=== PATIENT | female | born 1985 | race Caucasian/White ===

== ENCOUNTER 2024-12-30 15:06 | Inpatient (IN) | payer SELFPAY ==
--- OUTSIDE RECORDS SUMMARY | 2018-06-14 06:14 | XMS_ITS | Continuity of Care Document ---
Author Organization [facility] Address [address] [place] [id number] Phone Care Team Providers Care Attendant Lodging Facilities Name Role Phone Bren Domínguez APN Unavailable [...] Diagnoses Date Provider Providers Copied on Encounter [facility] [employer] [facility], [address] [place] [address], [id number] tel:[phone] [facility] Other dysphagia 9 [employer] FAMILY SERVICES COORDINATOR Bren. [address] [place] [address], [place], [place], [id number], [place]. tel:[phone] [facility], [address] [place] [address], [id number] tel:[phone] [facility] No Information 0 9 [employer] FAMILY SERVICES COORDINATOR Bren. [address] [place] [address], [place], [place], [id number], [place]. tel:[phone] [facility] [employer] [facility], [address] [place] [address], [id number] tel:[phone] [facility] No Information 9 Francis Faith. [address] [place] [address], [id number], [place]. tel:[phone] Referring Provider: Raymond Mtz MD, [address] [place] [address] [place], [place], [address]. tel:[phone] [facility], [address] [place] [address], [id number] tel:[phone] [facility] Other dysphagiaEsop hageal dysphagia Feb-0 9 Wayne Russ. [address] [place] [address], [place], [place], [id number], [place]. tel:[phone] [facility], [address] [place] [address], [id number] tel:[phone] [facility] Esophageal dysphagia Feb0 9 Francis Faith. [address] [place] [address], [id number], [place]. tel:[phone] Offic/outpt E&m Estab Mod-hi 2 [facility], [address] [place] [address], [id number] tel:[phone] [facility] follow up (chief complaint) Hiatal hernia with GERD and esophagitisEs ophageal dysphagiaSens ation of lump in throatHoarsen ess of voice [employer] CARLA Correia. [address] [place] [address]., [place], [place], [id number], [place]. tel:[phone] Referring Provider: Raymond Mtz MD, [address] [place] [address], [address]. tel:[phone] [facility], [address] [place] [address], [id number] tel:[phone] [facility] [employer] [facility] No Information Francis Faith. [address] [place] [address], [id number], [place]. tel:[phone] Referring Provider: Raymond Mtz MD, [address] [place] [address], [id number]. tel:[phone] [facility], [address] [place] [address], [id number] tel:[phone] [facility] No Information [facility]. [address] [place] [address], [id number], [place]. tel:[phone] Referring Provider: Marcell Magana, [address] [place] [address], [id number] . tel:[phone] [facility], [address] [place] [address], [id number] tel:[phone] [facility] Dysphagia, unspecifiedAb normal findings on dx imaging of prt digestive tractDisease of esophagus, unspecified Francis Faith. [address] [place] [address], [id number], [place]. tel:[phone] Referring Provider: Raymond Mtz MD, [address] [place] [address], [id number]. tel:[phone] [facility], [address] [place] [address], [id number] tel:[phone] [facility] [employer] Esophageal dysphagia 9 [employer] FAMILY SERVICES COORDINATOR Bren. [address] [facility] [place], [place], [id number], [place]. tel:[phone] Offic Cons New/estab Mod [facility], [address] [facility], [place], [place], [id number] tel:[phone] [facility] [employer] dysphagia (chief complaint) Esophageal dysphagiaSens ation of lump in throat 8 [employer] FAMILY SERVICES COORDINATOR Bren. [address] [facility] [place], [place], [id number], [place]. tel:[phone] Referring Provider: Raymond Mtz MD, [address] [place] [address], [place], [address]. tel:[phone] Family History Family Member Type Diagnosis Age At Onset Problem (finding) No family history of Ca ncer, colon Problem (finding) No family history of Co trish polyps Immunizations Vaccine Date Status Comments Zoster administered Source: Other P rovider Pneumonia administered Source: Other P rovider Flu (split) (3 yrs or older) administered Source: Other Provider Payers Payer name Insurance type Covered republican ID Authoriza tion(s) [facility] [id number] Social History Type Description Quantity Date [...]
[2024-12-30 15:07] VITALS: BP 142/106; PULSE 102; RESP 20; TEMP 36.9; O2SAT 96; BMI 15.9
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
--- NOTE | 2024-12-30 15:22 | ECG_ITS ---
[facility] Date: 2024-12[facility]30 Pat Name: Ignacia Scott Department: Room: Gender: Female Button Tacker: : 1985 Requested By: Shani Clifford Order Number: [id number] Chintan MD: NATE BRIAN Measurements Intervals [place] Rate: 88 P: 71 ME: 136 QRS: 78 QRSD: 68 T: 38 QT: 348 QTc: 423 Interpretive Statements SINUS RHYTHM NONSPECIFIC T-WAVE ABNORMALITY No previous ECG available for comparison Electronically Signed On 12-30-2024 21:34:06 CDT by NATE BRIAN [email or web address]
[2024-12-30 15:27] LABS: Hematocrit 38.5 % (36-47); Hemoglobin 12.50 g/dL (11.27-16.99); Mean Corpuscular HGB Conc 32.5 g/dL (30-55); Mean Corpuscular Hemoglobin 33.8 pg (27-33); Mean Corpuscular Volume 104.1 fl (85-98); Nucleated Red Blood Cells % 0 %; Platelet Count 324 10^3/cmm (157-399); Red Blood Count 3.70 10^6/uL (3.85-5.65); White Blood Count 13.31 10^3/uL (3.29-11.43)
[2024-12-30 15:28] LABS: Glucose Urine UA Negative (Normal); Nitrate Urine Negative (Negative); Specific Gravity, Urine 1.024 (1.005-1.030)
[2024-12-30 15:33] LABS: Add Urine Microscopic? YES
[2024-12-30 15:35] LABS: PCP Screen Urine Negative (Negative)
[2024-12-30 15:37] LABS: HCG Qualitative Urine. Negative (Negative)
[2024-12-30 15:58] LABS: Acetaminophen < 5.0 ug/mL (10-30); Alanine Aminotransferase 42 U/L (0-33); Albumin Level 5.3 g/dL (3.5-5.2); Alcohol Level < 10 mg/dL (0-10); Alkaline Phosphatase 86 U/L (35-105); Anion Gap 15.1 (5-19); Aspartate Amino Transferase 64 U/L (0-32); Blood Urea Nitrogen 16 mg/dL (6-20); Calcium 9.4 mg/dL (8.5-10.5); Carbon Dioxide 30 mmol/L (22-29); Chloride 100 mmol/L (98-107); Creatinine Clr Calc Pharmacy 46.1224; Globulin 3.2 g/dL (1.3-4.6); Glucose 103 mg/dL (65-115); Osmolality Calculated 293 mOsm/kg (285-295); Potassium 4.1 mmol/L (3.5-5.1); Salicylate < 0.3 mg/dL (3-10); Sodium 141 mmol/L (136-145); Total Protein 8.5 g/dL (6.6-8.7)
[2024-12-30 16:20] LABS: Thyroid Stimulating Hormone 183.00 uIU/mL (0.27-4.20)
[2024-12-30 16:43] VITALS: BP 129/91; PULSE 93; RESP 16; O2SAT 96
[2024-12-30 17:30] VITALS: BP 157/101; PULSE 113; RESP 16; TEMP 37.1; O2SAT 96
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
--- NOTE | 2024-12-30 19:41 | P.CONIM_ITS ---
Providers/Reason For Consult 2 Consulting Physician/Specialty*: Osmin Mclean MD hospitalist Reason for Consult*: Hypothyroidism Requesting Physician: Inocencio Weber MD Attending Physician: Inocencio Weber MD History of Present Illness History of Present Illness Ignacia Scott is a 39 year old female with history of hypothyroidism states she had precancerous thyroid goiter with resection 2012. She was treated with levothyroxine 125 mcg 237 mcg with frequent changes but last dose was 125 mcg 1 year ago. Patient was admitted to the psych unit with suicidal ideation and found to have a TSH of 183. Patient reports history of hemochromatosis, brittle bones, osteoporosis and thyroidectomy Review of Systems 2 Narrative: Denies constipation, dry hair dry skin brittle hair. Patient states she cannot sleep and is anxious tired of living in distress Medications/Allergies Home Medications ?Medication ?Instructions ?Recorded ?Confirmed ?Last Taken ?Type No Known Home Medications 12/30/2412/05 Unknown History Allergies Allergy/AdvReac Type Severity Reaction Status Date / Time meloxicam Allergy Mild Unknown Unverified 12/30/24 18:40 escitalopram (From Lexapro) Allergy ALGY-Swell Verified 12/30/24 15:12 Lip/Tongue/Throat NSAIDS (Non-Steroidal Allergy ALGY-Swell Verified 12/30/24 15:12 Anti-Inflamma Lip/Tongue/Throat Current Medications Generic Name Dose Route Start Last Admin Trade Name Freq PRN Reason Stop Dose Admin Hydroxyzine Pamoate 50 mg 12/30/24 17:30 12/30/24 18:35 Hydroxyzine 25 Mg Capsule PO 50 mg Q6H PRN Administration ANXIETY PFSH Acute 2 PFSH: Medical History (Updated 12/30/24 @ 19:44 by Osmin Mclean MD) Hypothyroidism Hx of thyroidectomy Female Reproductive History: Date of last menstrual period: 04/05/16 Vitals/I&O/Wt Last Vital Signs Temp 98.7 F 12/30/24 17:30 Pulse 113 H 12/30/24 17:30 Resp 16 12/30/24 17:30 BP 157/101 12/30/24 17:30 Pulse Ox 96 12/30/24 17:30 O2 Del Method Room Air 12/30/24 17:32 Weight last 48 hrs Weight 39.463 kg Physical Exam 2 Narrative: Will return to examine. Dr. Weber currently seeing the patient Data 12/30/24 15:19 12/30/24 15:19 A&P Assessment and plan 1. Hypothyroidism: Start levothyroxine 137 mcg daily first dose now next dose in the morning. Will follow-up on symptoms and free T4 PDMP PDMP Reviewed: Not Reviewed Coding Level of Care Code 20729 Diagnoses Hypothyroidism E03.9 Time Spent (min) 15
[2024-12-30 20:31] VITALS: BP 122/86; PULSE 87; RESP 18; TEMP 36.6; O2SAT 99
[2024-12-30 21:28] LABS: Free T4 Free Thyroxine 0.12 ng/dL (0.82-1.77)
[2024-12-31 06:00] VITALS: BP 106/79; PULSE 90; RESP 19; TEMP 36.6; O2SAT 100; BMI 18.7
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
[2024-12-31 14:51] VITALS: BP 126/90; PULSE 98; RESP 18; TEMP 36.4
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
--- NOTE | 2024-12-31 16:42 | XRR_ITS ---
PROCEDURE INFORMATION: Exam: XR Ribs Exam date and time: 12/31/2024 4:54 PM Age: 39 years old Clinical indication: Painful respiration; Additional info: Bilateral rib pain after persistent cough; Osteoporosis TECHNIQUE: Imaging protocol: Radiologic exam of the of the ribs. Views: 3 views. Bilateral ribs. Total images: 3 COMPARISON: No relevant prior studies available. FINDINGS: Limitations: No fiducial skin marker was placed at the site of clinical concern. Bones/joints: Left posterior 6th rib fracture deformity with periosteal reaction and a subtle partial radiolucent hairline suggesting acute or subacute, possibly healing rib fracture. Healed right posterior 5th, 6th, 7th, 8th subtle rib fracture deformities best appreciated on the oblique projection. Mild generalized degenerative changes of the vertebral column characterized primarily by multilevel osteophyte formation, and degenerative facet arthrosis commensurate with patient's age. No acute osseous abnormality. Qualitative demineralization of bones (osteopenia) limiting evaluation for nondisplaced fractures. Last. Lungs: Lungs are mildly hyperaerated with slight flattening of the diaphragms, query air trapping of reactive airways disease or asthma exacerbation. No focal acute pathologic pulmonary parenchymal process. Pleural spaces: No significant pleural effusion. No pneumothorax. Heart/Mediastinum: The heart is not enlarged. Organs: Surgical clips are noted midline and right of midline in the region of the thyroid bed. Soft tissues: Soft tissues are normal as visualized, demonstrating no masses or induration. XR/XR ribs BI mn 4V w [id number] IMPRESSION: 1. Left posterior 6th rib fracture with periosteal reaction, probably representing a healing subacute fracture (age indeterminate). 2. Old healed posttraumatic right rib fracture deformities. 3. No specific imaging evidence of acute disease of the chest. No pneumothorax. No pulmonary contusion. No pleural effusion. 4. Mild hyperaeration-hyper lucency of the lung pineda, query air trapping of reactive airways disease. 5. Generalized mild skeletal degenerative and other chronic/nonacute findings as described above. COMMENTS: 1. Qualitative demineralization of bones (osteopenia) limiting evaluation for nondisplaced fractures. 2. If symptoms do not correspond closely to the suspected left posterior 6 rib fracture, or if symptoms persist or worsen, consider repeat imaging with fiducial skin markers at the troublesome clinical areas of concern or a follow-up study in 7-10 days if clinically warranted.
--- NOTE | 2024-12-31 16:52 | XRR_ITS ---
PROCEDURE INFORMATION: Exam: XR Right Hip Exam date and time: 12/31/2024 5:09 PM Age: 39 years old Clinical indication: Hip pain; Right hip; Additional info: RT hip pain TECHNIQUE: Imaging protocol: Radiologic exam of the right hip. Views: 1 view hip with pelvis when performed. Total images: 53 COMPARISON: No relevant prior studies available. FINDINGS: Bones/joints: No acute osseous abnormality. No acute displaced fracture, subluxation or dislocation. Soft tissues: Soft tissues are normal as visualized, demonstrating no masses or induration. Gastrointestinal tract: Moderate volume of stool throughout the course of the nondistended colon. Other findings: Incidental pelvic venous phlebolith noted. XR/XR hip RT 2-3V wo/w pel* [id number] IMPRESSION: 1. No acute displaced fracture. 2. Moderate burden of colonic stool without distension.
--- NOTE | 2024-12-31 17:19 | PC.NURSE ---
Pt was down in xray for a chest xray. She asked if there was also a Rt hip xray ordered. The xray staff told her there wasn't. We called Dr. Mclean and he gave a v/o for a Rt hip xray. That was done while we were down there.
[2024-12-31] MEDS: calcium carb-vit d 600mg/400unit 1 Tablet 1 EACH PO (17:53)
[2024-12-31 19:01] LABS: Ferritin 79 ng/mL (15-150); Iron 41 ug/dL (37-145); Total Iron Binding Capacity 295 mcg/dl; Unsaturated Iron Binding 254 ug/dL (112-347)
[2024-12-31] MEDS: HYDROcodone-acetaminophen 5-325 mg Tablet 1 TAB PO (20:01)
[2024-12-31 21:19] VITALS: BP 115/82; PULSE 93; RESP 18; TEMP 36.7; O2SAT 100
[2025-01-01 06:00] VITALS: BP 107/84; PULSE 98; RESP 18; TEMP 37.1; O2SAT 100
[2025-01-01] MEDS: HYDROcodone-acetaminophen 5-325 mg Tablet 1 TAB PO ×3 (06:13→20:08)
[2025-01-01] MEDS: calcium carb-vit d 600mg/400unit 1 Tablet 1 EACH PO ×2 (08:26→17:36)
[2025-01-01 14:00] VITALS: BP 125/92; PULSE 83; RESP 18; TEMP 36.7; O2SAT 100
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
[2025-01-01 18:52] LABS: Hematocrit 33.7 % (36-47); Hemoglobin 11.10 g/dL (11.27-16.99); Mean Corpuscular HGB Conc 32.9 g/dL (30-55); Mean Corpuscular Hemoglobin 34.7 pg (27-33); Mean Corpuscular Volume 105.3 fl (85-98); Nucleated Red Blood Cells % 0 %; Platelet Count 270 10^3/cmm (157-399); Red Blood Count 3.20 10^6/uL (3.85-5.65); White Blood Count 9.65 10^3/uL (3.29-11.43)
[2025-01-01 19:14] LABS: Alanine Aminotransferase 27 U/L (0-33); Albumin Level 4.7 g/dL (3.5-5.2); Alkaline Phosphatase 66 U/L (35-105); Anion Gap 17.4 (5-19); Aspartate Amino Transferase 33 U/L (0-32); Blood Urea Nitrogen 22 mg/dL (6-20); Calcium 9.9 mg/dL (8.5-10.5); Carbon Dioxide 31 mmol/L (22-29); Chloride 97 mmol/L (98-107); Creatinine Clr Calc Pharmacy 56.8419; Globulin 2.4 g/dL (1.3-4.6); Glucose 75 mg/dL (65-115); Osmolality Calculated 294 mOsm/kg (285-295); Potassium 4.4 mmol/L (3.5-5.1); Sodium 141 mmol/L (136-145); Total Protein 7.1 g/dL (6.6-8.7)
[2025-01-01 20:04] VITALS: BP 124/89; PULSE 88; RESP 16; TEMP 36.7; O2SAT 98
[2025-01-02] MEDS: HYDROcodone-acetaminophen 5-325 mg Tablet 1 TAB PO ×3 (03:01→14:03)
[2025-01-02 03:04] VITALS: BP 122/92; PULSE 87; RESP 16; TEMP 36.5; O2SAT 100
[2025-01-02 07:28] LABS: Hematocrit 37.9 % (36-47); Hemoglobin 12.50 g/dL (11.27-16.99); Mean Corpuscular HGB Conc 33.0 g/dL (30-55); Mean Corpuscular Hemoglobin 34.9 pg (27-33); Mean Corpuscular Volume 105.9 fl (85-98); Nucleated Red Blood Cells % 0 %; Platelet Count 296 10^3/cmm (157-399); Red Blood Count 3.58 10^6/uL (3.85-5.65); White Blood Count 9.14 10^3/uL (3.29-11.43)
[2025-01-02 07:47] LABS: Alanine Aminotransferase 26 U/L (0-33); Albumin Level 4.8 g/dL (3.5-5.2); Alkaline Phosphatase 68 U/L (35-105); Anion Gap 16.8 (5-19); Aspartate Amino Transferase 32 U/L (0-32); Blood Urea Nitrogen 22 mg/dL (6-20); Calcium 10.2 mg/dL (8.5-10.5); Carbon Dioxide 28 mmol/L (22-29); Chloride 97 mmol/L (98-107); Creatinine Clr Calc Pharmacy 51.6745; Globulin 2.3 g/dL (1.3-4.6); Glucose 121 mg/dL (65-115); Osmolality Calculated 289 mOsm/kg (285-295); Potassium 4.8 mmol/L (3.5-5.1); Sodium 137 mmol/L (136-145); Total Protein 7.1 g/dL (6.6-8.7)
[2025-01-02 07:56] LABS: Free T4 Free Thyroxine 0.67 ng/dL (0.82-1.77)
[2025-01-02 08:21] LABS: Thyroid Stimulating Hormone 233.20 uIU/mL (0.27-4.20)
[2025-01-02] MEDS: calcium carb-vit d 600mg/400unit 1 Tablet 1 EACH PO (08:21)
[2025-01-02 13:21] VITALS: BP 114/80; PULSE 90; RESP 18; TEMP 37.1; O2SAT 100
[2025-01-02 13:51] VITALS: BP 114/80; PULSE 90; RESP 18; TEMP 37.1; O2SAT 100
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
--- NOTE | 2025-01-02 18:26 | P.PN_ITS ---
Subjective 2 Subjective: Hospital course appreciated. No acute events overnight. Plan for possible discharge as per psychiatry team. Patient has remained on room air and hemodynamically stable. Tolerating levothyroxine well. Vitals/I&O/Wt Last Vital Signs Temp 98.7 F 01/02/25 13:51 Pulse 90 01/02/25 13:51 Resp 18 01/02/25 13:51 BP 114/80 01/02/25 13:51 Pulse Ox 100 01/02/25 13:51 O2 Del Method Room Air 01/02/25 13:21 Physical Exam 2 Narrative: General well-developed thin white female in no cardiopulmonary distress she is intermittently emotional and mildly distressed Neck no palpable masses that she has a large lower neck horizontal incisional scar well-healed CV regular rate and rhythm Lungs clear to auscultation bilaterally Abdomen positive bowel tones soft nontender skin with some stretch davis no large striae Calves no pretibial edema. She does have mild bruising Ribs bilaterally mild diffusely tender she has difficult to discern individual root rib pain if he winces in his pain in general Data 01/02/25 07:18 01/02/25 07:18 A&P Assessment and plan 1. Hypothyroidism: Started levothyroxine 137 mcg daily first dose now next dose in the morning. Patient denies diarrhea or constipation. She is thin but denies significant weight change. She denies brittle hair. She does admit to dry skin. She denies hypersomnolence. TSH was 0.12 this morning Continue levothyroxine 137 mcg daily 2. Anxiety and depression: Treatment has per Dr. Weber 3. Chronic migraine: Will start riboflavin 400 mg daily 4. Rib pain on left side: Plain films bilateral ribs for fracture 5. Osteoporosis: Start Fosamax 70 mg weekly, vitamin D and calcium. Will check vitamin D level 6. Hemochromatosis: Check ferritin and iron Plan: Plan for the day: Appreciate CBC, CMP and repeat thyroid panel. Improvement in free T4. For now continue with levothyroxine 137 mcg daily. Will advise patient to follow-up as an outpatient with PCP and a repeat thyroid panel in 4 weeks. PDMP PDMP Reviewed: Not Reviewed Attestations 2 Medical Necessity Statement*: As per primary team Diagnoses Hypothyroidism E03.9 Anxiety and depression F41.9; F32.A Chronic migraine Rib pain on left side R07.81 Osteoporosis M81.0 Hemochromatosis E83.119
[2025-01-04 10:15] LABS: Vit D 1,25 (Oh)2, Total 68 pg/mL (18-72); Vit D2 1,25 (Oh)2 <8 pg/mL; Vit D3 1,25 (Oh)2 68 pg/mL
== END 2025-01-02 16:14 | disposition home or self-care (01) | DRG 881 ==
LOC: ER 16:02 → NP 16:34
PROVIDERS: Internal Medicine; Student in an Organized Health Care Education/Training Program; Admitting Provider Psychiatry & Neurology Psychiatry; Emergency Provider Emergency Medicine; Visit Provider Psychiatry & Neurology Psychiatry
DX: F32.A Depression, unspecified (principal); R45.851 Suicidal ideations; Z59.00 Homelessness unspecified; M80.0AXA Age-related osteoporosis with current pathological fracture, other site, initial encounter for fracture; F41.9 Anxiety disorder, unspecified; E03.9 Hypothyroidism, unspecified; Z88.8 Allergy status to other drugs, medicaments and biological substances; Z90.49 Acquired absence of other specified parts of digestive tract; F14.11 Cocaine abuse, in remission; F43.10 Post-traumatic stress disorder, unspecified; G43.909 Migraine, unspecified, not intractable, without status migrainosus; E83.119 Hemochromatosis, unspecified; G47.00 Insomnia, unspecified; T38.1X6A Underdosing of thyroid hormones and substitutes, initial encounter; Z91.411 Personal history of adult psychological abuse; Z91.410 Personal history of adult physical and sexual abuse
CPT/HCPCS: 36415; 71111; 73502; 80053; 80306; 80307; 81001; 81025; 82533; 82652; 82728; 83540; 83550; 84439; 84443; 85025; 93005; 97150; 97165; 99285; J9999

== ENCOUNTER 2025-01-03 11:49 | Emergency (ER) | payer SELFPAY ==
--- OUTSIDE RECORDS SUMMARY | 2018-06-14 06:14 | XMS_ITS | Continuity of Care Document ---
Author Organization [facility] Address [address] [place] [id number] Phone Care Team Providers Care Tug Captain Name Role Phone Bren Domínguez APN Unavailable [...] Diagnoses Date Provider Providers Copied on Encounter [place] [facility], [address] [place] [address], [id number] tel:[phone] [facility] Other dysphagia 9 [employer] CRAB STEAMER Bren. [address] [place] [address], [place], [place], [id number], [place]. tel:[phone] [facility], [address] [place] [address], [id number] tel:[phone] [facility] No Information 0 9 [employer] CRAB STEAMER Bren. [address] [place] [address], [place], [place], [id number], [place]. tel:[phone] [facility], [address] [place] [address], [id number] tel:[phone] [facility] No Information 9 Francis Faith. [address] [place] [address], [id number], [place]. tel:[phone] Referring Provider: Raymond Mtz MD, [address] [place] [address] [place], [place], [address]. tel:[phone] [facility], [address] [place] [address], [id number] tel:[phone] [facility] Other dysphagiaEsop hageal dysphagia Feb-0 9 Wayne Russ. [address] [place] [address], [place], [place], [id number], [place]. tel:[phone] [facility], [address] [place] [address], [id number] tel:[phone] [facility] [facility] Esophageal dysphagia Feb0 9 Francis Faith. [address] [place] [address], [id number], [place]. tel:[phone] Offic/outpt E&m Estab Mod-hi 2 [facility], [address] [place] [address], [id number] tel:[phone] [facility] [facility] follow up (chief complaint) Hiatal hernia with GERD and esophagitisEs ophageal dysphagiaSens ation of lump in throatHoarsen ess of voice [employer] CARLA Correia. [address] [place] [address]., [place], [place], [id number], [place]. tel:[phone] Referring Provider: Raymond Mtz MD, [address] [place] [address], [id number]. tel:[phone] [facility], [address] [place] [address], [id number] tel:[phone] [facility] [facility] [employer] [facility] No Information Francis Faith. [address] [place] [address], [id number], [place]. tel:[phone] Referring Provider: Raymond Mtz MD, [address] [place] [address], [address]. tel:[phone] [facility], [address] [place] [address], [id number] tel:[phone] [facility] No Information [facility]. [address] [place] [address], [id number], [place]. tel:[phone] Referring Provider: Marcell Magana, [address] [place] [address], [id number] . tel:[phone] [facility], [address] [place] [address], [id number] tel:[phone] [facility] [facility] [employer] [facility] Dysphagia, unspecifiedAb normal findings on dx imaging of prt digestive tractDisease of esophagus, unspecified Francis Faith. [address] [place] [address], [id number], [place]. tel:[phone] Referring Provider: Raymond Mtz MD, [address] [place] [address], [id number]. tel:[phone] [facility], [address] [place] [address], [id number] tel:[phone] [facility] [facility] Esophageal dysphagia 9 [employer] CRAB STEAMER Bren. [address] [facility] [place], [place], [id number], [place]. tel:[phone] Offic Cons New/estab Mod [facility], [address] [facility], [place], [place], [id number] tel:[phone] [facility] dysphagia (chief complaint) Esophageal dysphagiaSens ation of lump in throat 8 [employer] CRAB STEAMER Bren. [address] [facility] [place], [place], [id number], [place]. tel:[phone] Referring Provider: Raymond Mtz MD, [address] [place] [address], [place], [address]. tel:[phone] Family History Family Member Type Diagnosis Age At Onset Problem (finding) No family history of Ca ncer, colon Problem (finding) No family history of Co trish polyps Immunizations Vaccine Date Status Comments Zoster administered Source: Other P rovider Pneumonia administered Source: Other P rovider Flu (split) (3 yrs or older) administered Source: Other Provider Payers Payer name Insurance type Covered democrat ID Authoriza tion(s) [facility] [id number] Social History Type Description Quantity Date [...]
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
[2025-01-03 11:58] VITALS: BP 139/97; PULSE 87; TEMP 36.7; O2SAT 100
--- NOTE | 2025-01-03 12:35 | W.ED.GENADLT ---
HPI - General Adult General: Chief complaint: General Medical Stated complaint: rib pain, BARBOZA, hit head last night Time Seen by Provider: 01/03/25 12:13 History of Present Illness: 39-year-old female presents emergency room complaining of right sided rib pain she states she fell and hit her head last night she has some bruising. She thinks she may have broken a rib when she is coughing or sneezing states she has a history of osteoporosis and has had multiple broken rib fractures in the past. She was recently in the [facility] she is quick to tell us that she is not homicidal or suicidal and she is happy that she is just hurting everywhere. Notes reviewed from most recent hospitalization. Associated symptoms: Reports chest pain (Chest wall pain worse with palpation); Deny dyspnea or rash Related Data Previous Rx's ?Medication ?Instructions ?Recorded amitriptyline 25 mg tablet 25 mg PO BEDTIME 30 days #30 tabs 01/02/25 levothyroxine 137 mcg tablet 137 mcg PO QAM 30 days #30 tabs 01/02/25 olanzapine 5 mg disintegrating 5 mg PO Q4H PRN 01/02/25 tablet Agitation/Psychosis 30 days #30 tabs tramadol 50 mg tablet 50 mg PO Q8H PRN pain #7 tabs 01/03/25 Allergies Allergy/AdvReac Type Severity Reaction Status Date / Time meloxicam Allergy Mild Unknown Verified 01/03/25 12:04 escitalopram (From Lexapro) Allergy ALGY-Swell Verified 01/03/25 12:04 Lip/Tongue/Throat NSAIDS (Non-Steroidal Allergy ALGY-Swell Verified 01/03/25 12:04 Anti-Inflamma Lip/Tongue/Throat Review of Systems Const: Denies: fever(s) or chills Card: Reports: chest pain (Chest wall pain worse with palpation) Resp: Denies: dyspnea GI: Denies: abdominal pain : Denies: dysuria, urinary frequency or urinary urgency Musc: Denies: neck pain or back pain Skin/Breast: Denies: rash PFSH ED PFSH: Medical History Hemochromatosis Osteoporosis Hypothyroidism Hx of thyroidectomy Physical Exam Const: COMMON NORMALS: no acute distress GENERAL APPEARANCE: cooperative and comfortable ORIENTATION/CONSCIOUSNESS: Yes awake, Yes oriented to person, Yes oriented to place and Yes oriented to time HENMT: COMMON NORMALS: normocephalic, atraumatic and hearing grossly normal bilaterally HEAD & SCALP: normocephalic and atraumatic OTHER: Pupils equal react light extraocular is intact. No nystagmus. Resp: COMMON NORMALS: normal respiratory effort, No retractions, No use of accessory muscles and clear to auscultation bilaterally AUSCULTATION: clear to auscultation bilaterally Cardio: COMMON NORMALS: regular rate, regular rhythm and No murmurs present (Cardio) RATE: regular rate RHYTHM: regular rhythm GI: COMMON NORMALS: Soft to palpation and No hepatosplenomegaly present AUSCULTATION: Yes normoactive bowel sounds PALPATION: Yes Soft to palpation, No Tenderness to palpation present (GI), No Guarding due to palpation present (GI) and Yes No hepatosplenomegaly present Extremity: COMMON NORMALS: normal to inspection, capillary refill normal, no clubbing, cyanosis or edema, no calf tenderness and no pedal edema Neuro: SENSORIUM/ORIENTATION: Yes oriented to person, Yes oriented to place and Yes oriented to time OTHER: No focal neurologic deficits noted. Skin: COMMON NORMALS: no rashes or lesions noted GENERAL SKIN EXAM: no rashes or lesions noted Course Vital Signs: Vital signs: Vital Signs Temperature 98.1 F 01/03/25 11:58 Pulse Rate 87 01/03/25 11:58 Blood Pressure 139/97 01/03/25 11:58 Pulse Oximetry 100 01/03/25 11:58 Oxygen Delivery Me thod Room Air 01/03/25 11:58 MDM - General Adult Medical Decision Making X-ray of the ribs multiple previous fractures appear to be healing. Right eighth rib suggestive of superimposed subacute fracture. No acute infiltrates on chest x-ray neurologically patient is intact no sign significant intracranial pathology. Reviewed findings with patient vital signs otherwise unremarkable. Neurologically intact there is no focal neurologic deficits. Will discharge patient home tramadol as needed for her rib pain and have her follow-up with primary care Medical Records I reviewed the patient's medical records. Lab Data I reviewed the patient's lab results. Radiology Impressions Ribs X-Ray 01/03/25 12:39 IMPRESSION: 1. Findings suggestive of mild old healed rib fracture deformities posterolateral 5th through the 9th ribs on the right. In addition, subtle cortical irregularity with more acute appearance along the superior margin posterolateral 8th rib on the right suggests superimposed subtle acute fracture. 2. No acute cardiopulmonary abnormality. All radiology interpretation(s) finalized by discharge Discharge Plan Discharge Patient Disposition: Home Clinical Impression: Closed head injury, History of rib fracture, Closed rib fracture Condition: Stable Prescriptions: New tramadol 50 mg tablet 50 mg PO Q8H PRN (Reason: pain) Qty: 7 0RF No Action amitriptyline 25 mg Tablet 25 mg PO BEDTIME 30 Days Qty: 30 2RF levothyroxine 137 mcg Tablet 137 mcg PO QAM 30 Days Qty: 30 2RF olanzapine 5 mg Tablet,Disintegrating 5 mg PO Q4H PRN (Reason: Agitation/Psychosis) 30 Days Qty: 30 1RF Discharge Orders: Discharge ED (Routine); Ordered 01/03/25 Ordered By: Kenneth Lopez Discharge Diet: Usual diet Discharge Activity: Increase activity as tolerated Patient Instructions: Opioid Safety, Pain Management, Patient Portal & Jose Instructions Activity Restrictions/Additional Instructions: Thank you for choosing [facility] for your healthcare needs today. It is very important that you follow up as instructed or that you return to the Emergency Department should you have concerns or if your condition changes or worsens in any way. Emergency department visits are focused on emergent conditions, in some cases you may require further evaluation on an outpatient basis. You were seen in the emergency room after a report of a fall and new right sided rib pain. Examination of the area you hit when you fell there is no sign of any significant injury no indication for advanced imaging at this time. Neurologic exam was normal. X-rays of your ribs show multiple old healing fractures 1 possible subacute fracture. Will give you tramadol to use 1 every 8 hours as needed for pain you can also apply ice to the area if needed and use Tylenol [id number]. (Please note that included in your discharge packet is information concerning opioid safety and pain management. This information is given to all patients were discharged from the ER regardless of their discharge diagnosis or the medicines they usually take or are prescribed.) Print Language: Albanian Coding Level of Care Code ED Health Information Administrator for Jordyn Elizondo
--- NOTE | 2025-01-03 12:39 | XRR_ITS ---
PROCEDURE INFORMATION: Exam: XR Right Ribs with PA Chest Exam date and time: 01/03/2025 12:38 PM Age: 39 years old Clinical indication: Painful respiration; Suddenly hurt after coughing or sneezing; Additional info: Pain TECHNIQUE: Imaging protocol: Radiologic exam of the right ribs with PA chest. Views: 3 views COMPARISON: CR XR ribs BI mn 4V w CXR1V [id number] 12/31/2024 4:54 PM FINDINGS: Other: Postsurgical clips lower neck region. Lungs: No infiltrate/edema or consolidation. Pleural spaces: No pleural effusion or pneumothorax. Heart/Mediastinum: No cardiomegaly. Bones/joints: Mild old healed rib fracture deformities posterolateral 5th through 9th ribs on the right. In addition, subtle cortical irregularity with more acute appearance along the superior margin posterolateral 8th rib on the right suggests superimposed subtle acute fracture. XR/XR ribs RT mn 3V w CXR1V [id number] IMPRESSION: 1. Findings suggestive of mild old healed rib fracture deformities posterolateral 5th through the 9th ribs on the right. In addition, subtle cortical irregularity with more acute appearance along the superior margin posterolateral 8th rib on the right suggests superimposed subtle acute fracture. 2. No acute cardiopulmonary abnormality.
--- NOTE | 2025-01-03 13:34 | PC.NURSE ---
This nurse took pt ordered apap for pain, pt requesting something for pain. Upon entering room, pt states I just took tylenol less than 2 hours ago. I'm not here seeking pain meds, I just want to stop hurting. I can't sleep at night, my anxiety is getting worse and I don't know what to do Dr. Lopez notified.
== END 2025-01-03 15:08 | disposition home or self-care (01) ==
PROVIDERS: Emergency Provider Family Medicine
DX: S09.8XXA Other specified injuries of head, initial encounter (principal); S22.31XA Fracture of one rib, right side, initial encounter for closed fracture; Z87.81 Personal history of (healed) traumatic fracture; W19.XXXA Unspecified fall, initial encounter
CPT/HCPCS: 71101; 99283

== ENCOUNTER 2025-01-14 21:15 | Emergency (ER) | payer SELFPAY ==
--- OUTSIDE RECORDS SUMMARY | 2018-06-14 06:14 | XMS_ITS | Continuity of Care Document ---
Author Organization [facility] Address [address] [place] [id number] Phone Care Team Providers Care Director Fixed Income Name Role Phone Bren Domínguez APN Unavailable [...] Diagnoses Date Provider Providers Copied on Encounter [facility] [employer] [facility], [address] [place] [address], [id number] tel:[phone] [facility] Other dysphagia 9 Hotopp E BUSINESS SPECIALIST Bren. [address] [place] [address], [place], [place], [id number], [place]. tel:[phone] [facility], [address] [place] [address], [id number] tel:[phone] [facility] No Information 0 9 Hoto[employer] E BUSINESS SPECIALIST Bren. [address] [place] [address], [place], [place], [id number], [place]. tel:[phone] [facility] [employer] [facility], [address] [place] [address], [id number] tel:[phone] [facility] No Information 9 Francis Faith. [address] [place] [address], [id number], [place]. tel:[phone] Referring Provider: Raymond Mtz MD, [address] [place] [address] [place], [place], [address]. tel:[phone] [facility], [address] [place] [address], [id number] tel:[phone] [facility] Other dysphagiaEsop hageal dysphagia Feb-0 9 Wayne Russ. [address] [place] [address], [place], [place], [id number], [place]. tel:[phone] [facility], [address] [place] [address], [id number] tel:[phone] [facility] Esophageal dysphagia Feb0 9 Francis Faith. [address] [place] [address], [id number], [place]. tel:[phone] Offic/outpt E&m Estab Mod-hi 2 [facility], [address] [place] [address], [id number] tel:[phone] [facility] follow up (chief complaint) Hiatal hernia with GERD and esophagitisEs ophageal dysphagiaSens ation of lump in throatHoarsen ess of voice [employer] CARLA Correia. [address] [place] [address]., [place], [place], [id number], [place]. tel:[phone] Referring Provider: Raymond Mtz MD, [address] [place] [address], [address]. tel:[phone] [facility], [address] [place] [address], [id number] tel:[phone] [facility] [employer] [facility] No Information Francis Faith. [address] [place] [address], [id number], [place]. tel:[phone] Referring Provider: Raymond Mtz MD, [address] [place] [address], [id number]. tel:[phone] [facility], [address] [place] [address], [id number] tel:[phone] [facility] No Information [facility]. [address] [place] [address], [id number], [place]. tel:[phone] Referring Provider: Marcell Magana, [address] [place] [address], [id number] . tel:[phone] [facility], [address] [place] [address], [id number] tel:[phone] [facility] [employer] [facility] [employer] Dysphagia, unspecifiedAb normal findings on dx imaging of prt digestive tractDisease of esophagus, unspecified Francis Faith. [address] [place] [address], [id number], [place]. tel:[phone] Referring Provider: Raymond Mtz MD, [address] [place] [address], [address]. tel:[phone] [facility], [address] [place] [address], [id number] tel:[phone] [facility] Esophageal dysphagia 9 Hotopp E BUSINESS SPECIALIST Bren. [address] [facility] [place], [place], [id number], [place]. tel:[phone] Offic Cons New/estab Mod [facility], [address] [facility], [place], [place], [id number] tel:[phone] [facility] [employer] dysphagia (chief complaint) Esophageal dysphagiaSens ation of lump in throat 8 Hoto[employer] E BUSINESS SPECIALIST Bren. [address] [facility] [place], [place], [id number], [place]. tel:[phone] Referring Provider: Raymond Mtz MD, [address] [place] [address], [place], [address]. tel:[phone] Family History Family Member Type Diagnosis Age At Onset Problem (finding) No family history of Ca ncer, colon Problem (finding) No family history of Co trish polyps Immunizations Vaccine Date Status Comments Zoster administered Source: Other P rovider Pneumonia administered Source: Other P rovider Flu (split) (3 yrs or older) administered Source: Other Provider Payers Payer name Insurance type Covered alliance party ID Authoriza tion(s) [facility] [id number] Social History Type Description Quantity Date [...] Referral to ENT Related to Other dysphagia Call if symptoms wor sen, change, or become concerning in any way Related to Hoarseness of voice Call if dysphagia wo rsens, changes, or becomes concerning in any way Related to Esophageal dysphagia Eat slow, take small bites, chew food well Related to Esophageal dysphagia Omeprazole 40 mg BID 30 minutes before breakfast & dinner, open capsule & mix in applesauce;#60,2Ref Related to Hiatal hernia with GERD and esophagitis GERD literature Related to Hiata l hernia with GERD and esophagitis Elevate head of bed prior to sle ep Related to Hiatal hernia with GERD and esophagitis Eat smaller meals, n o eating three hours prior to bedtime Related to Hiatal hernia with GERD and esophagitis Avoid provocative fo ods: citrus, alcohol, coffee, chocolate, mints Related to Hiatal hernia with GERD and esophagitis Go to ED any food jasmin dayne that cannot clear Related to Esophageal dysphagia BMP only if needed Related to Ab normal findings on dx imaging of prt digestive tract Go to ED any food jasmin dayne that cannot clear Related to Esophageal dysphagia Call if dysphagia wo rsens, changes, or becomes concerning in any way Related to Esophageal dysphagia Eat slow, take small bites, chew food well Related to Esophageal dysphagia Assessments Type Assessment Date assessment Other dysphagia Patient Care Teams Name Effective Dates (start - stop) Status Members No Information
[2025-01-14 21:16] VITALS: BP 128/95; PULSE 118; RESP 17; TEMP 36.8; O2SAT 95; BMI 18.3
--- NOTE | 2025-01-14 21:25 | ED_ITS ---
HPI - General Adult 2 General: Chief complaint: General Medical Stated complaint: anxiety Time Seen by Provider: 01/14/25 21:16 Source: patient Mode of arrival: ambulatory Limitations: no limitations History of Present Illness: Patient is a 39-year-old female here for multiple complaints including hurting all over , insomnia, dry/cracked skin, feeling like her extremities and abdomen are swollen, anxiety, among others. She states she was recently taken off of her amitriptyline at the recommendation of the walk-in clinic after consulting with Dr. Mantilla-she does have an appointment with him this Wednesday. She is taking Olanzapine and Hydroxyzine but is out of these medications. Patient has a history of a thyroidectomy. She was started on Levothyroxine during her last [facility] stay after she was consulted on by hospitalist due to her TSH being in the 180s. She was seeing an manufacturing advisor back in [place] before moving here to [place]. Onset (ago): day(s) Pain Consistency: constant Relieving factors: none Exacerbating factors: none Associated symptoms: Deny chest pain, dyspnea, headache(s), nausea, rash, palpitations, syncope or vomiting Treatments prior to arrival: none Related Data Previous Rx's ?Medication ?Instructions ?Recorded levothyroxine 137 mcg tablet 137 mcg PO QAM 30 days #3 0 tabs 01/02/25 tramadol 50 mg tablet 50 mg PO Q8H PRN pain #7 tab s 01/03/25 hydroxyzine HCl 25 mg tablet 25 mg PO TID PRN anxiety #20 tabs 01/14/25 olanzapine 5 mg disintegrating 5 mg PO Q4H PRN 5 tablet Agitation/Psychosis 30 days #30 tabs Allergies Allergy/AdvReac Type Severity Reaction Status Date / Time meloxicam Allergy Mild Unknown Verified 01/09/25 09:31 escitalopram (From Lexapro) Allergy ALGY-Swell Verified 01/09/25 09:31 Lip/Tongue/Throat NSAIDS (Non-Steroidal Allergy ALGY-Swell Verified 01/09/25 09:31 Anti-Inflamma Lip/Tongue/Throat Review of Systems 2 Const: Reports: fatigue and change in sleep pattern; Denies: fever(s), chills or body aches Eyes: Denies: change in vision, blurry vision, photophobia, floaters or seeing flashes ENMT: Denies: ear or mastoid pain, nasal discharge, nasal congestion or sinus pain Card: Reports: edema; Denies: chest pain, palpitations, irregular heart rhythm, lightheadedness, syncope or dyspnea on exertion Resp: Denies: dyspnea, productive cough or pain on inspiration GI: Reports: bloating; Denies: abdominal pain, nausea, vomiting, heartburn or diarrhea : Denies: flank pain, difficulty voiding, dysuria or urinary frequency Musc: Reports: extremity swelling; Denies: neck pain, back pain, extremity pain or joint pain Skin/Breast: Reports: other (dry cracking skin); Denies: rash Neuro: Denies: headache(s), numbness in extremities, weakness in extremities, sensory changes or dizziness Psych: Reports: anxiety PFSH ED 2 PFSH: Medical History Hemochromatosis Osteoporosis Hypothyroidism Hx of thyroidectomy Social History Smoking and tobacco/nicotine status: never used tobacco/nicotine Physical Exam 2 Const: COMMON NORMALS: no acute distress, average body habitus, patient oriented x3, no limitations, alert and well nourished GENERAL APPEARANCE: c ooperative, anxious and other (tearful at times) ORIENTATION/CONSCIOUSNESS: Y es awake, Yes oriented to person, Yes oriented to place and Yes oriented to time HENMT: COMMON NORMALS: normocephalic and atraumatic HEAD & SCALP: normal to inspection, normocephalic and atraumatic FACE & SINUS: normal facial exam Neck/C-Spine: COMMON NORMALS: full ROM, no lymphadenopathy, supple and no meningeal signs GENERAL: Yes normal visual inspection, No anterior neck swelling and No submandibular swelling Chest: COMMONS NORMALS: normal inspection of the chest Resp: COMMON NORMALS: normal respiratory effort and clear to auscultation bilaterally AUSCULTATION: clear to auscultation bilaterally Cardio: COMMON NORMALS: regular rate and regular rhythm RATE: regular rate RHYTHM: regular rhythm GI: COMMON NORMALS: Normal to inspection, nondistended, normoactive bowel sounds present, Soft to palpation, No hepatosplenomegaly present and no masses INSPECTION: Yes normal to inspection AUSCULTATION: Yes normoactive bowel sounds PALPATION: Yes Soft to palpation, Yes Tenderness to palpation present (GI) (diffusely), Yes Guarding due to palpation present (GI), No Rigid due to palpation and Yes No hepatosplenomegaly present : COMMON NORMALS: Yes no CVA tenderness BLADDER/KIDNEY EXAM: Yes no CVA tenderness Back/Pelvis: COMMON NORMALS: no CVA tenderness and thoracic and lumbar spine normal to inspection Extremity: COMMON NORMALS: normal to inspection GENERAL: Yes normal exam except as noted Neuro: COMMON NORMALS: patient oriented x3, moves all extremities, no focal motor deficits and no sensory deficits noted SENSORIUM/ORIENTATION: Yes alert, Yes oriented to person, Yes oriented to place and Yes oriented to time MENINGEAL SIGNS: Yes no meningeal signs Skin: COMMON NORMALS: no rashes or lesions noted GENERAL SKIN EXAM: no rashes or lesions noted Course 2 Vital Signs: Vital signs: Vital Signs Temperature 98.3 F 01/14/25 21:16 Pulse Rate 102 H 01/14/25 22:35 Respiratory Rate 17 01/14/25 21:16 Blood Pressure 103/67 01/14/25 22:35 Pulse Oximetry 95 01/14/25 22:35 Oxygen Delivery Me thod Room Air 01/14/25 22:35 MDM - General Adult Medical Decision Making Upon [id number] is sleeping comfortably in no acute distress. Patient's vital signs are stable. Blood work showing a normal white count. Hemoglobin was 10. This was down from 12.5 approximately 2 weeks ago. She is not complaining of black or tarry stools. She did complain of abdominal pain. Looking at previous documentation she had had a fall recently. CT scan was ordered due to her complaint of abdominal pain and recent injury/trauma along with a drop in her hemoglobin as there was concern for possible hemoperitoneum. CT scan was unremarkable. Did show constipation with no evidence for obstruction. The remainder of her blood work is nonactionable. TSH today is 15.6. Had ordered CXR/BNP to evaluate for her complaint of swelling-these were normal. Patient is stable for discharge from the emergency department with recommendations to follow-up with Dr. Mantilla as scheduled this week. Medical Records I reviewed the patient's medical records. Lab Data I reviewed the patient's lab results. 01/14/25 22:10 01/14/25 22:10 Radiology Impressions Chest X-Ray 01/14/25 21:25 IMPRESSION: No acute findings. Abdomen/Pelvis CT 01/14/25 22:22 IMPRESSION: Findings of constipation without obstruction Post hysterectomy pelvis Laboratory Results WBC 8.19 10^3/uL (3.29-11.43) 01/14/25 22:10 RBC 2.91 10^6/uL (3.85-5.65) L 01/14/25 22:10 Hgb 10.00 g/dL (11.27-16.99) L 01/14/25 22:10 Hct 30.5 % (36-47) L 01/14/25 22:10 MCV 104.8 fl (85-98) H 01/14/25 22:10 MCH 34.4 pg (27-33) H 01/14/25 22:10 MCHC 32.8 g/dL (30-55) 01/14/25 22:10 RDW 14.2 % (12.1-15.1) 01/14/25 22:10 Plt Count 277 10^3/cmm (157-399) 01/14/25 22:10 MPV 9.1 fL (7.4-10.4) 01/14/25 22:10 Neut % (Auto) 53.7 % 01/14/25 22:10 Lymph % (Auto) 30.8 % 01/14/25 22:10 Rankin % (Auto) 11.7 % 01/14/25 22:10 Eos % (Auto) 2.2 % 01/14/25 22:10 Baso % (Auto) 0.9 % 01/14/25 22:10 Neut # (Auto) 4.40 10^3/uL (1.8-7.7) 01/14/25 22:10 Lymph # (Auto) 2.5 10^3/uL (0.8-4.8) 01/14/25 22:10 Rankin # (Auto) 1.0 10^3/uL (0.2-0.9) H 01/14/25 22:10 Eos # (Auto) 0.2 10^3/uL (0.0-0.8) 01/14/25 22:10 Baso # (Auto) 0.1 10^3/uL (0.0-0.1) 01/14/25 22:10 Nucleated RBC % (auto) 0 % 01/14/25 22:10 Nucleated RBCs # 0.0 /100WBC 01/14/25 22:10 Sodium 140 mmol/L (136-145) 01/14/25 22:10 Potassium 4.0 mmol/L (3.5-5.1) 01/14/25 22:10 Chloride 101 mmol/L (98-107) 01/14/25 22:10 Carbon Dioxide 28 mmol/L (22-29) 01/14/25 22:10 Anion Gap 15.0 (5-19) 01/14/25 22:10 BUN 26 mg/dL (6-20) H 01/14/25 22:10 Creatinine 0.7 mg/dL (0.5-0.9) 01/14/25 22:10 GFR Calculation 92.2 mL/min (90-130) 01/14/25 22:10 Glucose 104 mg/dL (65-115) 01/14/25 22:10 Calculated Osmolality 295 mOsm/kg (285-295) 01/14/25 22:10 Calcium 9.0 mg/dL (8.5-10.5) 01/14/25 22:10 Total Bilirubin 0.2 mg/dL (0.15-1.2) 01/14/25 22:10 AST 35 U/L (0-32) H 01/14/25 22:10 ALT 34 U/L (0-33) H 01/14/25 22:10 Alkaline Phosphatase 77 U/L (35-105) 01/14/25 22:10 NT-Pro-B Natriuret Pep 76 pg/mL (0-125) 01/14/25 22:10 Total Protein 6.6 g/dL (6.6-8.7) 01/14/25 22:10 Albumin 4.4 g/dL (3.5-5.2) 01/14/25 22:10 Globulin 2.2 g/dL (1.3-4.6) 01/14/25 22:10 Lipase 72 U/L (13-60) H 01/14/25 22:10 TSH 15.63 uIU/mL (0.27-4.20) H 01/14/25 22:10 Urine Color Yellow (Yellow) 01/14/25 21:30 Urine Appearance Clear (CLEAR) 01/14/25 21:30 Urine pH 6 (5-7) 01/14/25 21:30 Ur Specific [place] 1.020 (1.005-1.030) 01/14/25 21:30 Urine Protein Neg (Negative) 01/14/25 21:30 Urine Glucose (UA) Norm (Normal) 01/14/25 21:30 Urine Ketones Negative (Negative) 01/14/25 21:30 Urine Blood Trace (Negative) H 01/14/25 21:30 Urine Nitrate Negative (Negative) 01/14/25 21:30 Urine Bilirubin Neg (Negative) 01/14/25 21:30 Urine Urobilinogen Norm mg/dL (Negative) 01/14/25 21:30 Ur Leukocyte Esterase Negative (Negative) 01/14/25 21:30 Urine RBC 0-4 /hpf (0-2) H 01/14/25 21:30 Urine WBC None /hpf (0-5) 01/14/25 21:30 Ur Squamous Epith Cells 0-2 /hpf (0-5) 01/14/25 21:30 Amorphous Sediment Not Reportable 01/14/25 21:30 Urine Bacteria None /hpf (NONE) 01/14/25 21:30 All radiology interpretation(s) finalized by discharge Discharge Plan Discharge Patient Disposition: Home Clinical Impression: Anxiety and depression Hypothyroidism Qualifiers: Hypothyroidism type: unspecified Qualified Code(s): E03.9 - Hypothyroidism, unspecified Condition: Stable Prescriptions: Continued hydroxyzine HCl 25 mg tablet 25 mg PO TID PRN (Reason: anxiety) Qty: 20 0RF olanzapine 5 mg Tablet,Disintegrating 5 mg PO Q4H PRN (Reason: Agitation/Psychosis) 30 Days Qty: 30 1RF No Action levothyroxine 137 mcg Tablet 137 mcg PO QAM 30 Days Qty: 30 2RF tramadol 50 mg tablet 50 mg PO Q8H PRN (Reason: pain) Qty: 7 0RF Discharge Orders: Discharge ED (Routine); Ordered 01/14/25 Ordered By: Ruma Parker Patient Instructions: Patient Portal & Jose Instructions Activity Restrictions/Additional Instructions: As we discussed, please follow-up with Dr. Mantilla as scheduled this week. Print Language: Guamanian Coding Level of Care Code ED Biofuels Production Technician for Chg Caro
--- NOTE | 2025-01-14 21:25 | XRR_ITS ---
PROCEDURE INFORMATION: Exam: XR Chest Exam date and time: 01/14/2025 9:30 PM Age: 39 years old Clinical indication: Other: Leg swelling TECHNIQUE: Imaging protocol: Radiologic exam of the chest. Views: 1 view. COMPARISON: CR XR ribs RT mn 3V w CXR1V [id number] 01/03/2025 12:38 PM FINDINGS: Lungs: Unremarkable. No consolidation. Pleural spaces: Unremarkable. No pleural effusion. No pneumothorax. Heart/Mediastinum: Unremarkable. No cardiomegaly. Bones/joints: Unremarkable. XR/XR chest 1V portable [id number] IMPRESSION: No acute findings.
[2025-01-14 21:58] LABS: Glucose Urine UA Norm (Normal); Nitrate Urine Negative (Negative); Specific Gravity, Urine 1.020 (1.005-1.030)
[2025-01-14 21:59] LABS: Add Urine Microscopic? YES; UA Manual Slide Review YES
[2025-01-14 22:15] LABS: Hematocrit 30.5 % (36-47); Hemoglobin 10.00 g/dL (11.27-16.99); Mean Corpuscular HGB Conc 32.8 g/dL (30-55); Mean Corpuscular Hemoglobin 34.4 pg (27-33); Mean Corpuscular Volume 104.8 fl (85-98); Nucleated Red Blood Cells % 0 %; Platelet Count 277 10^3/cmm (157-399); Red Blood Count 2.91 10^6/uL (3.85-5.65); White Blood Count 8.19 10^3/uL (3.29-11.43)
--- NOTE | 2025-01-14 22:22 | CTR_ITS ---
PROCEDURE INFORMATION: Exam: CT Abdomen And Pelvis With Contrast Exam date and time: 01/14/2025 10:50 PM Age: 39 years old Clinical indication: Abdominal pain; PT arrrives via EMS by [facility] with C/O anxiety and aching all over. ; Additional info: Abdominal pain, recent fall/trauma TECHNIQUE: Imaging protocol: Computed tomography of the abdomen and pelvis with contrast. Radiation optimization: All CT scans at this facility use at least one of these dose optimization techniques: automated exposure control; mA and/or kV adjustment per patient size (includes targeted exams where dose is matched to clinical indication); or iterative reconstruction. Contrast material: [id number]; Contrast volume: 100 ml; Contrast route: INTRAVENOUS (IV); COMPARISON: CR XR hip RT 2-3V wo/w pel* [id number] 12/31/2024 5:09 PM RADIATION DOSE METRICS: Total DLP (mGy-cm): 309.14 FINDINGS: Liver: Unremarkable. No mass. Gallbladder and biliary ducts: Gallbladder surgically removed. Pancreas: Unremarkable. No ductal dilation. Spleen: Unremarkable. No splenomegaly. Adrenal glands: Normal. No mass. Kidneys and ureters: Unremarkable. No hydronephrosis. Stomach and bowel: Stomach is fluid-filled. There is demonstration of constipation without obstruction. Appendix: The appendix was not visualized, no inflammatory changes in right lower quadrant. Intraperitoneal space: There is no intra-abdominal or pelvic free air or free fluid present Vasculature: Unremarkable. No abdominal aortic aneurysm. Lymph nodes: Unremarkable. No enlarged lymph nodes. Urinary bladder: Unremarkable as visualized. Reproductive: Patient is status post hysterectomy. Bones/joints: Unremarkable. No acute fracture. Soft tissues: Unremarkable. CT/CT abdomen pelvis w con* [id number] IMPRESSION: Findings of constipation without obstruction Post hysterectomy pelvis
[2025-01-14 22:35] VITALS: BP 103/67; PULSE 102; O2SAT 95
[2025-01-14 22:43] LABS: Alanine Aminotransferase 34 U/L (0-33); Albumin Level 4.4 g/dL (3.5-5.2); Alkaline Phosphatase 77 U/L (35-105); Anion Gap 15.0 (5-19); Aspartate Amino Transferase 35 U/L (0-32); Blood Urea Nitrogen 26 mg/dL (6-20); Calcium 9.0 mg/dL (8.5-10.5); Carbon Dioxide 28 mmol/L (22-29); Chloride 101 mmol/L (98-107); Creatinine Clr Calc Pharmacy 80.4828; Globulin 2.2 g/dL (1.3-4.6); Glucose 104 mg/dL (65-115); Lipase 72 U/L (13-60); NT Pro B Type Natriuretic Pept 76 pg/mL (0-125); Osmolality Calculated 295 mOsm/kg (285-295); Potassium 4.0 mmol/L (3.5-5.1); Sodium 140 mmol/L (136-145); Thyroid Stimulating Hormone 15.63 uIU/mL (0.27-4.20); Total Protein 6.6 g/dL (6.6-8.7)
[2025-01-14] MEDS: iohexol 350 mg/mL 500 mL Btl (per mL) IV (22:54)
[2025-01-14 23:41] VITALS: BP 123/87; PULSE 113; O2SAT 97
== END 2025-01-14 23:42 | disposition home or self-care (01) ==
PROVIDERS: Emergency Provider Physician Assistant; PCP Family Medicine
DX: F41.9 Anxiety disorder, unspecified (principal); F32.A Depression, unspecified; E03.9 Hypothyroidism, unspecified
CPT/HCPCS: 36415; 71045; 74177; 80053; 81001; 83690; 83880; 84443; 85025; 99285

== ENCOUNTER 2025-01-18 07:42 | Outpatient (CLI) | payer SELFPAY ==
--- NOTE | 2025-01-18 08:00 | USCV_ITS ---
Shannon Scotta Age: 39 Gender: F : 1985 Exam Date: 01/18/2025 07:58 Ordering Phys: Jonnathan Mantilla MD Technologist: Exam Location: [facility] [place] Indication: swelling HISTORY: Lower extremity swelling. PROCEDURES: Venous duplex imaging was performed in only the left lower extremity. Serial compression, augmentation maneuvers, and spectral Doppler flow evaluation were performed. FINDINGS: Normal 2-D Doppler and augmentation and compressibility throughout the lower extremity venous structures. Additional imaging through the proximal calf veins also reveals no thrombus. Limited evaluation of the greater saphenous vein is patent with no thrombus. Mildly prominent heterogenous soft tissue in area of palpable abnormality. CONCLUSIONS No DVT left lower extremity. Recommend MRI left knee to evaluate palpable mass along the lateral knee. Dr. Deana Donohue DO (Electronically Signed) Final Date: 18 January 2025 09:47 S
== END 2025-01-18 07:43 | disposition home or self-care (01) ==
LOC: RAD 07:43
PROVIDERS: PCP Family Medicine; Visit Provider Family Medicine
DX: R60.0 Localized edema (principal); M79.89 Other specified soft tissue disorders
CPT/HCPCS: 93971

== ENCOUNTER → 2025-01-24 11:06 | Outpatient (BNVA) | payer BC, SELFPAY | PROVIDERS: PCP Family Medicine; Visit Provider Nurse Practitioner | DX: Z79.899 Other long term (current) drug therapy (principal) | CPT/HCPCS: 80061; 83036 ==

== ENCOUNTER 2025-01-25 09:53 | Outpatient (CLI) | payer BC, MEDICAID, SELFPAY ==
--- NOTE | 2025-01-25 10:15 | MR_ITS ---
WS: [id number] MRI LEFT KNEE HISTORY: L knee mass COMPARISON: Ultrasound 01/18/2025. No soft tissue mass is identified as well as suspected on the prior ultrasound. There is soft tissue edema which is mildly prominent but there is no mass. The edema is diffuse. Anterior cruciate ligament: Intact. Posterior cruciate ligament: Intact. Medial collateral ligament: Intact. Posterior lateral corner structures: Intact. Medial menisci: Intact. Normal signal, size and shape. Lateral meniscus: Intact. Normal signal, size and shape. Extensor mechanism: Distal quadriceps tendon and patellar tendons are intact. Fluid and soft tissue: No joint effusion of any significance. There is soft tissue edema surrounding the entire knee. No Devine's cyst. Osseous and articular structures: Patellofemoral compartment: Normal. Medial compartment: Normal. Lateral compartment: Normal. MR/MR knee LT wo con* [id number] IMPRESSION: 1. No soft tissue mass. 2. Diffuse soft tissue edema surrounding the knee. 3. No internal derangement.
== END 2025-01-25 09:54 | disposition home or self-care (01) ==
PROVIDERS: PCP Family Medicine; Visit Provider Family Medicine
DX: M25.862 Other specified joint disorders, left knee (principal); R60.0 Localized edema
CPT/HCPCS: 73721

== ENCOUNTER 2025-01-27 14:04 | Emergency (ER) | payer BC, MEDICAID, SELFPAY ==
--- OUTSIDE RECORDS SUMMARY | 2018-06-14 06:14 | XMS_ITS | Continuity of Care Document ---
Author Organization [facility] Address [address] [place] [id number] Phone Care Team Providers Care Customer Success Specialist Name Role Phone Bren Domínguez APN Unavailable Unavailable Allergies, Adverse Reactions, Alerts Substance Reaction Status Criticality sulindac hives, facial & eye swelling Active No Information meloxicam hives, facial and eye swelling Active No Information WARNIN allergy(ies) could not be collected because the type is not supported. Please contact the source practice for further details. Medications Medication Instructions Dosage Effective Dates (start - stop) Status Comments hyoscyamine 0.125 mg sublingual tablet take 1 three times daily for 5 days then use as needed - Active omeprazole 40 mg capsule,delayed release take 1 capsule by oral route 2 times daily 30 min prior to breakfast and dinner - Active tramadol 50 mg tablet take 1 tablet by o ral route every 8 hours as needed before eating as needed - Active Synthroid 112 mcg tablet take 1 tablet by oral route every day 112 MCG - Active Procedures Procedure Date Esoph Motility Study; Impedance Test, One Hour Offic/outpt E&m Estab Mod-hi 2 19 Level Iv-surg Path Gross/t, Lvl IV ASC Facility Charge [facility]gi Endo; W/bx 1/mx Moderate Sedation - Endoscopy 9 Offic Cons New/estab Mod Advance Directives Directive Yes / No Effective Date File Name No Information Encounters Encounter Description Practice Location Reason(s) For Visit Diagnoses Date Provider Providers Copied on Encounter [facility] [employer] [facility], [address] [place] [address], [id number] tel:[phone] [facility] Other dysphagia 9 [employer] SHAKE SAWYER Bren. [address] [place] [address], [place], [place], [id number], [place]. tel:[phone] [facility], [address] [place] [address], [id number] tel:[phone] [facility] No Information 0 9 [employer] SHAKE SAWYER Bren. [address] [place] [address], [place], [place], [id number], [place]. tel:[phone] [facility] [employer] [facility], [address] [place] [address], [id number] tel:[phone] [facility] No Information 9 Francis Faith. [address] [place] [address], [id number], [place]. tel:[phone] Referring Provider: Raymond Mtz MD, [address] [place] [address] [place], [place], [address]. tel:[phone] [facility], [address] [place] [address], [id number] tel:[phone] [facility] Other dysphagiaEsop hageal dysphagia Feb-0 9 Wayne Russ. [address] [place] [address], [place], [place], [id number], [place]. tel:[phone] [facility], [address] [place] [address], [id number] tel:[phone] [facility] Esophageal dysphagia Feb0 9 Francis Faith. [address] [place] [address], [id number], [place]. tel:[phone] Offic/outpt E&m Estab Mod-hi 2 [facility], [address] [place] [address], [id number] tel:[phone] [facility] follow up (chief complaint) Hiatal hernia with GERD and esophagitisEs ophageal dysphagiaSens ation of lump in throatHoarsen ess of voice [employer] CARLA Correia. [address] [place] [address]., [place], [place], [id number], [place]. tel:[phone] Referring Provider: Raymond Mtz MD, [address] [place] [address], [id number]. tel:[phone] [facility], [address] [place] [address], [id number] tel:[phone] [facility] [employer] [facility] No Information Francis Faith. [address] [place] [address], [id number], [place]. tel:[phone] Referring Provider: Raymond Mtz MD, [address] [place] [address], [id number]. tel:[phone] [facility], [address] [place] [address], [id number] tel:[phone] [facility] No Information [facility]. [address] [place] [address], [id number], [place]. tel:[phone] Referring Provider: Marcell Magana, [address] [place] [address], [id number] . tel:[phone] [facility], [address] [place] [address], [id number] tel:[phone] [facility] [employer] [facility] Dysphagia, unspecifiedAb normal findings on dx imaging of prt digestive tractDisease of esophagus, unspecified Francis Faith. [address] [place] [address], [id number], [place]. tel:[phone] Referring Provider: Raymond Mtz MD, [address] [place] [address], [id number]. tel:[phone] [facility], [address] [place] [address], [id number] tel:[phone] [facility] Esophageal dysphagia 9 [employer] SHAKE SAWYER Bren. [address] [facility] [place], [place], [id number], [place]. tel:[phone] Offic Cons New/estab Mod [facility], [address] [facility], [place], [place], [id number] tel:[phone] [facility] dysphagia (chief complaint) Esophageal dysphagiaSens ation of lump in throat 8 [employer] SHAKE SAWYER Bren. [address] [facility] [place], [place], [id number], [place]. tel:[phone] Referring Provider: Raymond Mtz MD, [address] [place] [address], [place], [address]. tel:[phone] Family History Family Member Type Diagnosis Age At Onset Problem (finding) No family history of Ca ncer, colon Problem (finding) No family history of Co trish polyps Immunizations Vaccine Date Status Comments Zoster administered Source: Other P rovider Pneumonia administered Source: Other P rovider Flu (split) (3 yrs or older) administered Source: Other Provider Payers Payer name Insurance type Covered constitution party ID Authoriza tion(s) [facility] [id number] Social History Type Description Quantity Date Captured Comments Alcohol Use Details Unknown Caffeine Use Details Unknown Tobacco Use Status Smoking Status No Information Sex Female Chief Complaint And Reason For Visit No Information Reason For Referral Reason For Referral No Information Plan Of Treatment Date Type Action Status Goal Tobacco cessation counseling completed Goal Tobacco cessation counseling completed Patient Education Using Your Medicines: A fter Your Visit completed Patient Education Gastroesophageal Reflux Disease (GERD~ completed Patient Education Using Your Medicines: A fter Your Visit completed History Of Present Illness Encounter Date Complaint History Of Prese nt Illness follow up Ms. Scott is a 32-year-old female who returns in follow up after endoscopy. She has history of anxiety, thyroidectomy in 2012, and cholecystectomy in 2005. She is accompanied by her roommate. She was seen in consultation on 04/04/18 with complaints of dysphagia to solids and pills, odynophagia, hoarseness, and constant lump in her throat. She explained that bolus gets stuck particularly on the right side of the cervical esophagus. Esophagram on 04/08/18 showed no intrinsic or extrinsic mass, thickening, ulceration, or stricture in the esophagus but ingestion of both marshmallow and 13 mm tablet demonstrates hang up of both materials at the level of the aortic arch. Multiple swallows of water were needed to resultant progression of both the pill and marshmallow. No underlying mucosal abnormality was identified in this region. She then had an EGD on 04/18/18 which revealed a small sliding hiatal hernia with mild reflux esophagitis. There was furrowing and multiple rings in the esophagus although biopsies were unremarkable with no eosinophils identified. In light of esophagram findings of prolonged food bolus at the aortic arch which raises concern for dysphagia lusoria, CT of the chest was ordered which was performed this morning and showed no mediastinal masses or gross abnormalities in the vasculature.She continues to have the above mentioned symptoms. She hasn't been able to take her PPI because she can't swallow the pill. She is crying stating that she can't take care of herself or her kids due to her symptoms. She has only been eating once a day because she has so much pain when she tries to swallow. She is asking for pain medications. She continues to smoke cigarettes 1/2 pack ppd and has 16 oz of coffee daily; denies alcohol or illicit drug use. She believes she has lost a lot of weight. She weighed 150 lbs on 04/04/18; she weighs 147 lbs today. 32-year-old female with complaints of dysphagia to solids and pills, odynophagia, hoarseness, and constant lump in her throat. Esophagram showed hang up of bolus at the level of the aortic arch although CT showed no mediastinal masses or gross abnormalities in the vasculature. EGD revealed small sliding hiatal hernia with mild reflux esophagitis as well as furrowing and multiple rings in the esophagus although biopsies were unremarkable with no eosinophils identified. Discussed with patient that her symptoms maybe related to reflux disease and recommend a trial of PPI. She started crying and demanded that something be done right now because she can't live like this." She doesn't believe PPI will help since she doesn't have heartburn. Explained to patient that reflux disease can sometimes present with laryngopharyngeal symptoms and dysphagia instead of the typical manifestations of retrosternal burning. Also explained to patient that omeprazole capsule can be opened and sprinkled on applesauce. She states you haven't done anything for me and nobody wants to help me. I again explained the work-up that has been done as well as the findings and based on the findings of her recent EGD, PPI trial is recommended. I do not have an instant fix for her symptoms and that she is welcome to seek a second opinion. More than 25 minutes of total time spent in the care of the patient today involving counseling/education and review of previous endoscopy and GI imaging. dysphagia Ms. Scott is a 32-year-old female who is seen in consultation for dysphagia. She has history of anxiety, thyroidectomy in 2012, and cholecystectomy in 2005. She is accompanied by her roommate. She notes dysphagia to solids and pills for more than a week. She states that the bolus gets stuck in the cervical esophagus, particularly on the right side, a few seconds after swallowing. There's associated odynophagia and hoarseness at times. She also notes a constant sensation of a lump in right side of her throat, which is worse when she tries to eat. She has seasonal allergies but denies food allergies or asthma. She has chronic cough which she attributes to her tobacco use. She smokes 1/2 pack of cigarettes daily; no alcohol or illicit drug use. No NSAID use. She was started on omeprazole 40 mg daily but she has only been able to take one dose. She denies heartburn, reflux, abdominal pain, nausea, or vomiting. Her weight remains steady and she has good appetite. Of note, there's no change in her bowel habits; no hematochezia or melena. She denies family history of colon polyps or colon cancer.On 03/01/18 CBC was normal; TSH was elevated at 10.951. She states that her synthroid was adjusted recently.32-year-old female with dysphagia and globus sensation with lateralization of symptoms. Recommend barium esophagram with solid phase to evaluate for esophageal structure abnormalities, obstructive lesions, GERD, or esophageal motility disorders. If unremarkable, anticipate EGD with esophageal biopsies, possible esophageal motility study. In the meantime, I advised her to eat slowly, take small bites, and chew food well. Go to ED if food bolus cannot be cleared. Patient verbalized understanding and agreed to the outlined plan. Functional Status Date Functional Assessmen t No Information Instructions Date Instruction Additional Infor maylin Referral to ENT Related to Other dysphagia Go to ED any food jasmin dayne that cannot clear Related to Esophageal dysphagia Avoid provocative fo ods: citrus, alcohol, coffee, chocolate, mints Related to Hiatal hernia with GERD and esophagitis Eat smaller meals, n o eating three hours prior to bedtime Related to Hiatal hernia with GERD and esophagitis Elevate head of bed prior to sle ep Related to Hiatal hernia with GERD and esophagitis GERD literature Related to Hiata l hernia with GERD and esophagitis Omeprazole 40 mg BID 30 minutes before breakfast & dinner, open capsule & mix in applesauce;#60,2Ref Related to Hiatal hernia with GERD and esophagitis Eat slow, take small bites, chew food well Related to Esophageal dysphagia Call if dysphagia wo rsens, changes, or becomes concerning in any way Related to Esophageal dysphagia Call if symptoms wor sen, change, or become concerning in any way Related to Hoarseness of voice BMP only if needed Related to Ab normal findings on dx imaging of prt digestive tract Eat slow, take small bites, chew food well Related to Esophageal dysphagia Call if dysphagia wo rsens, changes, or becomes concerning in any way Related to Esophageal dysphagia Go to ED any food jasmin dayne that cannot clear Related to Esophageal dysphagia Assessments Type Assessment Date assessment Other dysphagia Patient Care Teams Name Effective Dates (start - stop) Status Members No Information
[2025-01-27 14:06] VITALS: BP 124/76; PULSE 114; RESP 16; TEMP 37.1; O2SAT 98
--- NOTE | 2025-01-27 14:37 | XRR_ITS ---
PROCEDURE INFORMATION: Exam: XR Left Knee Exam date and time: 01/27/2025 2:51 PM Age: 39 years old Clinical indication: Pain; Knee; Left; Additional info: Lt knee pain/swelling; No known injury TECHNIQUE: Imaging protocol: Radiologic exam of the left knee. Views: 3 views. COMPARISON: MR knee LT wo con* [id number] 01/25/2025 10:20 AM FINDINGS: Bones/joints: Normal. Soft tissues: Normal. XR/XR knee LT 3V* [id number] IMPRESSION: No acute findings.
--- NOTE | 2025-01-27 15:05 | ED_ITS ---
HPI - Extremity Problem General: Chief complaint: Extremity Problem,Nontraumatic Stated complaint: left knee pain Time Seen by Provider: 01/27/25 14:48 History of Present Illness: Patient is 39-year-old female that comes ED without injury with complaints of left leg pain mainly knee pain. She had an MRI on 01/25 outpatient. Content: Patient was called by her primary care physician, Dr. Galvan that recommended she come back to the emergency room. She was inquiring about her primary care physician and obtaining a MRI of her whole leg. No sensory changes. No groin numbness or tingling, no urinary incontinence She complains of pain mainly in her knee, however extends from her low back on the left SI region laterally down her whole leg to her ankle Associated symptoms: Deny chest pain or rash Related Data Previous Rx's ?Medication ?Instructions ?Recorded hydroxyzine HCl 25 mg tablet 25 mg PO TID PRN anxiety #90 tabs 01/17/25 levothyroxine 137 mcg tablet 137 mcg PO QAM #90 tabs 1 aripiprazole 5 mg tablet (Abilify) 5 mg PO DAILY #30 t abs 01/24/25 hydroxyzine HCl 50 mg tablet 50 mg PO TID PRN anxiety #90 tabs 01/24/25 trazodone 50 mg tablet 50 mg PO .HS #30 tabs methocarbamol 750 mg tablet 750 mg PO Q8H PRN muscle s pasm #30 01/27/25 tabs methylprednisolone 4 mg tablets in See Rx Instructions PO .COMPLEX 01/27/25 a dose pack (Medrol (Francisco)) #21 ea Allergies Allergy/AdvReac Type Severity Reaction Status Date / Time meloxicam Allergy Mild Unknown Verified 01/24/25 09:56 escitalopram (From Lexapro) Allergy ALGY-Swell Verified 01/24/25 09:56 Lip/Tongue/Throat NSAIDS (Non-Steroidal Allergy ALGY-Swell Verified 01/24/25 09:56 Anti-Inflamma Lip/Tongue/Throat Review of Systems General: Reports: 10 or more systems reviewed and unremarkable except in HPI and below Eyes: Denies: change in vision or blurry vision ENMT: Denies: throat pain or nasal obstruction Card: Denies: chest pain or palpitations GI: Denies: abdominal pain, nausea or vomiting : Denies: flank pain or difficulty voiding Musc: Reports: back pain, extremity pain, joint pain, joint stiffness, limited range of motion and muscle weakness; Denies: neck pain, extremity swelling, joint swelling, joint redness or joint warmth Skin/Breast: Denies: rash or pruritus Neuro: Reports: difficulty walking; Denies: headache(s), numbness in extremities, weakness in extremities or sensory changes PFSH ED PFSH: Medical History (Updated 01/27/25 @ 15:07 by LEVI Goddard) Major depressive disorder, recurrent, moderate CELINE (generalized anxiety disorder) Cannabis abuse, in remission Cocaine use, unspecified, in remission Alcohol dependence, in remission PTSD (post-traumatic stress disorder) On combination antipsychotic drug therapy Moderate tobacco dependence Anxiety Moderate major depression Psychiatric care Hemochromatosis Osteoporosis Hypothyroidism Hx of thyroidectomy Surgical History (Updated 01/17/25 @ 13:22 by Jonnathan Mantilla MD) History of ear surgery x4 Hx of thyroidectomy Hx of tonsillectomy Hx of appendectomy Hx of cholecystectomy Hx of total hysterectomy Family History Mother Hypertension Social History (Updated 01/17/25 @ 13:07 by Josh Khan LPN) Smoking and tobacco/nicotine status: current every day tobacco/nicotine user Alcohol intake: never Substance/Drug Use: former Physical Exam Const: COMMON NORMALS: no acute distress, average body habitus and patient oriented x3 HENMT: COMMON NORMALS: not normocephalic and head/scalp not atraumatic HEAD & SCALP: not normocephalic and not atraumatic Eye: COMMON NORMALS: negative for Equal, round and reactive pupils present and negative for EOMs intact bilaterally PUPIL: No Equal, round and reactive pupils present Neck/C-Spine: COMMON NORMALS: no JVD Lymph: LYMPHATIC: no lymphadenopathy noted Chest: COMMONS NORMALS: normal inspection of the chest and normal palpation of entire chest wall Resp: COMMON NORMALS: normal respiratory effort, No retractions and clear to auscultation bilaterally AUSCULTATION: clear to auscultation bilaterally Cardio: COMMON NORMALS: no JVD, regular rate and regular rhythm RATE: regular rate RHYTHM: regular rhythm GI: COMMON NORMALS: Normal to inspection, nondistended, normoactive bowel sounds present, Soft to palpation, non-tender and No hepatosplenomegaly present PALPATION: Yes Soft to palpation and Yes No hepatosplenomegaly present : COMMON NORMALS: Yes no CVA tenderness BLADDER/KIDNEY EXAM: Yes no CVA tenderness Back/Pelvis: COMMON NORMALS: no CVA tenderness LUMBAR SPINE/LOWER BACK: Yes normal to inspection and Yes straight leg raise positive right Straight leg raise positive details right: at 30 degrees PELVIS: Yes buttocks normal SACROILIAC JOINTS: Yes SI joint(s) abnormal SI joint details: tender to palpation (left) Extremity: COMMON NORMALS: normal to inspection, full ROM and capillary refill normal Neuro: COMMON NORMALS: patient oriented x3 Course Vital Signs: Vital signs: Vital Signs Temperature 98.7 F 01/27/25 14:06 Pulse Rate 72 01/27/25 15:50 Respiratory Rate 16 01/27/25 14:06 Blood Pressure 124/76 01/27/25 14:06 Pulse Oximetry 99 01/27/25 15:50 Oxygen Delivery Me thod Room Air 01/27/25 14:06 MDM - Extremity (Nontraumatic) Medical Decision Making Patient is a 39-year-old female presented to the ED due to left knee pain. She states her pain is more left iliac crest, radiates down the lateral portion of her left leg. On physical examination she has symptoms consistent with sacroiliitis. She will be treated with steroids, and follow-up with primary care. Discussed with patient the limitations of the ED. We cannot get a nonemergent MRI out of the ED or if there is no electronic communications technician available. Patient states understanding and is acceptable to this without complications. Medical Records I reviewed the patient's medical records. Lab Data Radiology Impressions Knee X-Ray 01/27/25 14:37 IMPRESSION: No acute findings. All radiology interpretation(s) finalized by discharge Discharge Plan Discharge Patient Disposition: Home Clinical Impression: Sciatic leg pain Condition: Stable Prescriptions: New methocarbamol 750 mg tablet 750 mg PO Q8H PRN (Reason: muscle spasm) Qty: 30 0RF methylprednisolone [Medrol (Francisco)] 4 mg tablets,dose pack See Rx Instructions .ROUTE .COMPLEX Qty: 21 0RF Rx Instructions: for 6 days No Action hydroxyzine HCl 25 mg tablet 25 mg PO TID PRN (Reason: anxiety) Qty: 90 1RF levothyroxine 137 mcg tablet 137 mcg PO QAM Qty: 90 1RF trazodone 50 mg tablet 50 mg PO .HS Qty: 30 1RF hydroxyzine HCl 50 mg tablet 50 mg PO TID PRN (Reason: anxiety) Qty: 90 1RF aripiprazole [Abilify] 5 mg tablet 5 mg PO DAILY Qty: 30 1RF Discharge Orders: Discharge ED (Routine); Ordered 01/27/25 Ordered By: Aurea Feldman Referrals: Jonnathan Mantilla MD [Primary Care Provider, Family Practice] Discharge Diet: Usual diet Discharge Activity: Limit activity as instructed Patient Instructions: Sciatica (ED), Core Strengthening Exercises (ED), Patient Portal & Jose Instructions Activity Restrictions/Additional Instructions: - Icing your left knee, and low back will help with this pain. - Medrol dose pack has been sent to your pharmacy. Use as directed. - Tylenol may be utilized for pain as well. - Methocarbamol/Robaxin has been sent to your pharmacy. This is a light muscle relaxer. I would start with one half to ensure you do not have oversedation. Follow bottle directions. -Return to ED if you have worsening pain, fever greater 100.4 ?F - We are unable to order MRI out of the ER as we discussed. Thank you for choosing [facility] for your healthcare needs today. You have been screened and evaluated and felt safe for discharge. Health conditions do change or evolve sometimes and as such it is important that you follow up with your Primary Doctor to be re checked, 3-5 days is a general good time frame for follow up. You are always welcome to return to the ED for re assessment if your symptoms are worsening or you have new concerns Print Language: Divehi Coding Level of Care Code ED Waterproof Bag Cutting Machine Operator for Jordyn Elizondo
[2025-01-27] MEDS: orphenadrine 30 mg/mL Inj 2 mL 60 MG IM (15:29)
[2025-01-27 15:50] VITALS: PULSE 72; O2SAT 99
== END 2025-01-27 15:51 | disposition home or self-care (01) ==
PROVIDERS: Emergency Provider Physician Assistant; PCP Family Medicine
DX: M54.32 Sciatica, left side (principal); Z72.0 Tobacco use
CPT/HCPCS: 73562; 96372; 99284; J1100; J1885; J2360

== ENCOUNTER → 2025-02-06 11:01 | Outpatient (BNVA) | payer BC, SELFPAY | PROVIDERS: PCP Family Medicine; Visit Provider Family Medicine | DX: E03.9 Hypothyroidism, unspecified (principal) | CPT/HCPCS: 80053; 84439; 84443 ==

== ENCOUNTER 2025-02-13 14:06 | Outpatient (CLI) | payer BC, MEDICAID, SELFPAY ==
--- NOTE | 2025-02-13 14:30 | XR_ITS ---
WS: [id number] SCREENING DEXA SCAN [facility] CLINICAL INFORMATION: DEXA COMPARISON: None. FINDINGS: The L1-L4 bone mineral density measures 0.796 g/cm2. This corresponds to a T score score of -3.2 and Z score of -2.9. Left femoral neck bone mineral density measures 0.610 g/cm2. This corresponds to a T score of -3.2 and Z score of -2.7. Right femoral neck bone mineral density measures 0.646 g/cm2. This corresponds to a T score -2.9of and Z score of -2.4. Mean femoral neck bone mineral density measures 0.628 g/cm2. This corresponds to a T score of -3.0 and Z score of -2.6. XR/XR DEXA axial skeleton* [id number] IMPRESSION: Osteoporosis lumbar spine. Osteoporosis femoral necks. Patient's FRAX calculated 10 year probability for major osteoporotic fracture i s 17.2% and osteoporotic hip fracture is 12.8%.
== END 2025-02-13 14:07 | disposition home or self-care (01) ==
LOC: RAD 14:07
PROVIDERS: PCP Family Medicine; Visit Provider Family Medicine
DX: Z13.820 Encounter for screening for osteoporosis (principal); M81.0 Age-related osteoporosis without current pathological fracture
CPT/HCPCS: 77080

== ENCOUNTER → 2025-02-16 11:00 | Outpatient (BNVA) | payer BC, SELFPAY | PROVIDERS: PCP Family Medicine; Visit Provider Family Medicine | DX: R06.02 Shortness of breath (principal) | CPT/HCPCS: 71046 ==

== ENCOUNTER 2025-03-08 11:46 | Emergency (ER) | payer BC, MEDICAID, SELFPAY ==
[2025-03-08 11:57] VITALS: BP 110/76; PULSE 86; RESP 18; TEMP 36.5; O2SAT 98; BMI 23.8
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
--- NOTE | 2025-03-08 12:11 | XR_ITS ---
WS: [id number] Exam: XR ribs RT mn 3V w CXR1V [id number] Date/Time of Exam: 03/08/2025 12:11 PM Reason For Exam: trauma No acute right rib fracture or pneumothorax. No pleural or pulmonary reactive changes. Several old healed RIGHT rib fractures. XR/XR ribs RT mn 3V w CXR1V [id number] IMPRESSION: 1. No acute right rib fracture or pneumothorax.
[2025-03-08 12:22] LABS: Hematocrit 40.6 % (36-47); Hemoglobin 13.40 g/dL (11.27-16.99); Mean Corpuscular HGB Conc 33.0 g/dL (30-55); Mean Corpuscular Hemoglobin 32.6 pg (27-33); Mean Corpuscular Volume 98.8 fl (85-98); Nucleated Red Blood Cells % 0 %; Platelet Count 281 10^3/cmm (157-399); Red Blood Count 4.11 10^6/uL (3.85-5.65); White Blood Count 8.89 10^3/uL (3.29-11.43)
[2025-03-08 12:36] LABS: HCG, Serum Qual Negative (Negative)
[2025-03-08 12:41] LABS: Alanine Aminotransferase 20 U/L (0-33); Albumin Level 4.5 g/dL (3.5-5.2); Alkaline Phosphatase 89 U/L (35-105); Anion Gap 13.1 (5-19); Aspartate Amino Transferase 21 U/L (0-32); Blood Urea Nitrogen 19 mg/dL (6-20); Calcium 9.3 mg/dL (8.5-10.5); Carbon Dioxide 29 mmol/L (22-29); Chloride 99 mmol/L (98-107); Globulin 2.6 g/dL (1.3-4.6); Glucose 98 mg/dL (65-115); Osmolality Calculated 286 mOsm/kg (285-295); Potassium 4.1 mmol/L (3.5-5.1); Sodium 137 mmol/L (136-145); Total Protein 7.1 g/dL (6.6-8.7)
[2025-03-08 12:44] LABS: Glucose Urine UA Negative (Normal); Nitrate Urine Negative (Negative); Specific Gravity, Urine 1.018 (1.005-1.030)
[2025-03-08 12:47] LABS: Add Urine Microscopic? YES
== END 2025-03-08 13:28 | disposition home or self-care (01) ==
PROVIDERS: Emergency Provider Family Medicine; PCP Family Medicine
DX: S20.20XA Contusion of thorax, unspecified, initial encounter (principal); Z72.0 Tobacco use; W50.0XXA Accidental hit or strike by another person, initial encounter
CPT/HCPCS: 36415; 71101; 80053; 81001; 84703; 85025; 99284; J9999